=== PATIENT | male | born 1960 | race Caucasian/White ===

== ENCOUNTER 2018-03-25 08:01 | Inpatient (IN) | payer OTHER ==
--- NOTE | 2018-03-25 08:48 | HP ---
CIWA Score Nausea/Vomitin Muscle Tremors: 2 Anxiety: 2 Agitation: 2 Paroxysmal Sweats: 1-Minimal Palms Moist Orientation: 0-Oriented Tacttile Disturbances: 1-Very Mild Itch/Numbness Auditory Disturbances: 1-Very Mild Visual Disturbances: 0-None Headache: 2-Mild CIWA-Ar Total Score: 13 - Admission Criteria OASAS Guidelines: Admission for Medically Managed Detox: Requires at least one of the followin. CIWA greater than 12 2. Seizures within the past 24 hours 3. Delirium tremens within the past 24 hours 4. Hallucinations within the past 24 hours 5. Acute intervention needed for co occurring medical disorder 6. Acute intervention needed for co occurring psychiatric disorder 7. Severe withdrawal that cannot be handled at a lower level of care (continued vomiting, continued diarrhea, abnormal vital signs) requiring intravenous medication and/or fluids 8. Patient presents the following: CIWA greater than 12 Admission Criteria Met: Admission criteria met Admission ROS BHS - HPI Chief Complaint: i need help to stop drinking alcohol Allergies/Adverse Reactions: Allergies Allergy/AdvReac Type Severity Reaction Status Date / Time No Known Allergies Allergy Verified 03/25/18 08:55 History of Present Illness: this 57 years old male with alcohol dependence,seeking detox,withdrawal symptom, last seen in [facility] last nidht,refer for detox history of hypertension told by dentist 2 days ago,no medication syncope alcohol related last detox 2013 at [facility] plan for outpatient program and AA meeting,been to AA in the past Exam Limitations: No Limitations - Ebola screening Have you traveled outside of the country in the last 21 days: No (N) Have you had contact with anyone from an Ebola affected area: No Do you have a fever: No - Review of Systems Constitutional: Loss of Appetite, Malaise, Night Sweats, Changes in sleep, Weakness EENT: reports: Nose Congestion Respiratory: reports: No Symptoms reported Cardiac: reports: Palpitations GI: reports: Nausea, Indigestion, Abdominal cramping Musculoskeletal: reports: Back Pain, Muscle Pain Integumentary: reports: Dryness Neuro: reports: Headache, Tremors Endocrine: reports: No Symptoms Reported Hematology: reports: No Symptoms Reported Psychiatric: reports: No Sypmtoms Reported, Judgement Intact, Mood/Affect Appropiate, Orientated x3 Other Systems: Reviewed and Negative Patient History - Patient Medical History Hx Anemia: No Hx Asthma: No Hx Chronic Obstructive Pulmonary Disease (COPD): No Hx Cancer: No Hx Cardiac Disorders: No Hx Congestive Heart Failure: No Hx Hypertension: Yes (no med) Hx Hypercholesterolemia: No Hx Pacemaker: No HX Cerebrovascular Accident: No Hx Seizures: No Hx Dementia: No Hx Diabetes: No Hx Gastrointestinal Disorders: No Hx Liver Disease: No Hx Genitourinary Disorders: No Hx Sexually Transmitted Disorders: No Hx Renal Disease (ESRD): No Hx Thyroid Disease: No Hx Human Immunodeficiency Virus (HIV): No (last 2016 negative) Hx Hepatitis C: No Hx Depression: No Hx Suicide Attempt: No Hx Bipolar Disorder: No Hx Schizophrenia: No Other Medical History: no suicidal,no homicidal - Patient Surgical History Past Surgical History: No - PPD History Previous Implant?: Yes Documented Results: Negative w/o proof Implanted On Prior [facility] Admission?: No PPD to be Administered?: Yes - Smoking Cessation Smoking history: Never smoked - Substance & Tx. History Hx Alcohol Use: Yes Hx Substance Use: No Substance Use Type: Alcohol Hx Substance Use Treatment: Yes (2013 [facility]) - Substances Abused Alcohol Route: Oral Frequency: Daily Amount used: 1 PINT OF VODKA Age of first use: 18 Date of Last Use: 03/24/18 Family Disease History - Family Disease History Family History: Denies Admission Physical Exam BHS - Vital Signs Vital Signs: Vital Signs Temperature 98.1 F 03/26/18 05:58 Pulse Rate 72 03/26/18 05:58 Respiratory Rate 18 03/26/18 05:58 Blood Pressure 144/84 03/26/18 05:58 O2 Sat by Pulse Oximetry (%) - Physical General Appearance: Yes: Moderate Distress, Tremorous, Irritable, Sweating, Anxious HEENTM: Yes: Normal ENT Inspection, KENA, Pharynx Normal Respiratory: Yes: Lungs Clear, Normal Breath Sounds, No Respiratory Distress Neck: Yes: Within Normal Limits, Supple, Trachea in good position Breast: Yes: Within Normal Limits Cardiology: Yes: Within Normal Limits, Regular Rhythm, Regular Rate, S1, S2 Abdominal: Yes: Within Normal Limits, Normal Bowel Sounds, Non Tender, Flat, Soft Genitourinary: Yes: Within Normal Limits Back: Yes: Muscle Spasm Musculoskeletal: Yes: Back pain, Muscle Pain Extremities: Yes: Tremors Neurological: Yes: drawer in hand II-XII NML intact, Fully Oriented, Alert, Motor Strength 5/5 Integumentary: Yes: Dry Lymphatic: Yes: Within Normal Limits - Diagnostic (1) Alcohol dependence with uncomplicated withdrawal Current Visit: Yes Status: Acute (2) Syncope Current Visit: Yes Status: Acute (3) Essential hypertension Current Visit: Yes Status: Acute Cleared for Admission BHS - Detox or Rehab S Level of Care: Medically Managed Detox Regimen/Protocol: Librium
[2018-03-25 09:07] VITALS: BMI 29.5
[2018-03-25] MEDS ORDERED: ACETAMINOPHEN 325 MG TABLET (FP) PO PRN (09:12)
[2018-03-25] MEDS ORDERED: guaiFENesin/D-METHORPHAN HB 10 ML UNIT-DOSE CUPS PO PRN (09:12)
[2018-03-25] MEDS ORDERED: LOPERAMIDE HCL 2 MG CAPSULE PO PRN (09:12)
[2018-03-25] MEDS ORDERED: hydrOXYzine PAMOATE 50 MG CAPSULE (FP) PO PRN (09:12)
[2018-03-25] MEDS ORDERED: IBUPROFEN 400 MG TABLET (FP) PO PRN (09:12)
[2018-03-25] MEDS ORDERED: chlordiazePOXIDE HCL 25 MG CAPSULE PO PRN (09:12)
[2018-03-25] MEDS ORDERED: MAGNESIUM CITRATE 300 ML BOTTLE PO PRN (09:12)
[2018-03-25] MEDS ORDERED: MAGNESIUM HYDROX 2400MG/30ML ORAL SUSPENSION 30 ML CUP PO PRN (09:12)
[2018-03-25] MEDS ORDERED: P-EPHED 60MG/TRIPROLIDI 2.5MG TABLET PO PRN (09:12)
[2018-03-25] MEDS ORDERED: MENTHOL/PHENOL 1 EACH UD MM PRN (09:12)
[2018-03-25] MEDS ORDERED: MAG HYDROX/AL HYDROX/SIMETH 30 ML UNIT-DOSE CUP PO PRN (09:12)
[2018-03-25] MEDS ORDERED: cloNIDine HCL 0.1 MG TABLET PO ONE (09:35)
[2018-03-25] MEDS: chlordiazePOXIDE HCL 25 MG CAPSULE PO SCH ×3 (10:09→22:18)
[2018-03-25] MEDS: PRENATAL VITAMINS W/ FOLIC ACID TABLET (FP) PO SCH (10:09)
--- NOTE | 2018-03-25 16:47 | EKG ---
Test Reason : Blood Pressure : / mmHG Vent. Rate : 092 BPM Atrial Rate : 092 BPM P-R Int : 156 ms QRS Dur : 112 ms QT Int : 394 ms P-R-T Axes : 045 041 058 degrees QTc Int : 487 ms NORMAL SINUS RHYTHM INCOMPLETE RIGHT BUNDLE BRANCH BLOCK PROLONGED QT ABNORMAL ECG NO PREVIOUS ECGS AVAILABLE Confirmed by VERONICA WEISS MD ([id number]) on 03/25/2018 4:47:02 PM Referred By: Confirmed By:VERONICA WEISS MD
[2018-03-25 17:04] LABS: URINE APPEARANCE CLEAR; URINE BILIRUBIN NEGATIVE (<2.0 mg/dL); URINE COLOR YELLOW; URINE GLUCOSE (UA) NEGATIVE (NEGATIVE); URINE KETONE 1+ (NEGATIVE); URINE LEUK ESTERASE NEGATIVE (NEGATIVE); URINE NITRITE NEGATIVE (NEGATIVE); URINE PROTEIN 1+ (NEGATIVE); URINE UROBILINOGEN NEGATIVE mg/dL (0.2-1.0)
[2018-03-25] MEDS ORDERED: MELATONIN 5 MG TABLETS PO PRN (22:00)
[2018-03-25] MEDS: THIAMINE HCL 100 MG TABLET (FP) PO SCH (22:18)
[2018-03-26] MEDS: chlordiazePOXIDE HCL 25 MG CAPSULE PO SCH ×4 (05:17→22:13)
[2018-03-26] MEDS: PRENATAL VITAMINS W/ FOLIC ACID TABLET (FP) PO SCH (10:15)
--- NOTE | 2018-03-26 10:22 | PN ---
S CIWA - CIWA Score Nausea/Vomitin-No Nausea/No Vomiting Muscle Tremors: 4-Moderate,w/Arms Extend Anxiety: 3 Agitation: 3 Paroxysmal Sweats: 3 Orientation: 0-Oriented Tacttile Disturbances: 0-None Auditory Disturbances: 0-None Visual Disturbances: 0-None Headache: 0-None Present CIWA-Ar Total Score: 13 BHS Progress Note (SOAP) Subjective: sweats shakes interrupted sleep body aches Objective: 03/26/18 10:19 Vital Signs Temperature 98.2 F 03/26/18 09:55 Pulse Rate 88 03/26/18 09:55 Respiratory Rate 18 03/26/18 09:55 Blood Pressure 148/76 03/26/18 09:55 O2 Sat by Pulse Oximetry (%) Laboratory Tests 03/25/18 10:00 Urine Color Yellow Urine Appearance Clear Urine pH 6.0 Ur Specific [place] 1.025 Urine Protein 1+ H Urine Glucose (UA) Negative Urine Ketones 1+ H Urine Blood Negative Urine Nitrite Negative Urine Bilirubin Negative Urine Urobilinogen Negative Ur Leukocyte Esterase Negative Urine WBC (Auto) 1 Urine RBC (Auto) <1 rest of labs pending aaox3 ambulating no acute distress Assessment: 03/26/18 10:21 withdrawal sx Plan: continue detox increase fluids labs pending
[2018-03-26 11:02] LABS: HEMATOCRIT 41.1 % (35.4-49); HEMOGLOBIN 13.1 GM/dL (11.7-16.9); MCH 28.5 pg (25.7-33.7); MEAN CELL VOLUME 89.2 fl (80-96); MEAN PLT VOLUME 9.8 fl (7.5-11.1); PLATELET COUNT 184 K/MM3 (134-434); RBC 4.61 M/mm3 (4.00-5.60); RDW 14.7 % (11.9-15.9); WHITE BLOOD COUNT 5.8 K/mm3 (4.0-10.0)
[2018-03-26 11:30] LABS: ALBUMIN 4.4 g/dl (3.4-5.0); ALK PHOS 53 U/L (45-117); ANION GAP 8 MMOL/L (8-16); BILIRUBIN,TOTAL 1.1 mg/dL (0.2-1); BLOOD UREA NITROGEN 10 mg/dL (7-18); CALCIUM 8.8 mg/dL (8.5-10.1); CHLORIDE 104 mmol/L (98-107); CO2 29 mmol/L (21-32); CREATININE 0.7 mg/dL (0.55-1.3); GLUCOSE,RANDOM 106 mg/dL (74-106); POTASSIUM 3.6 mmol/L (3.5-5.1); SGOT/AST 42 U/L (15-37); SGPT/ALT 66 U/L (13-61); SODIUM 141 mmol/L (136-145); TOT PROT 7.6 g/dl (6.4-8.2)
[2018-03-26] MEDS ORDERED: PNEUMOC 13-VAL CONJ-DIP CRM/PF 0.5 ML DISP.SYRIN IM ONE (12:00)
[2018-03-26] MEDS ORDERED: PNEUMOCOCCAL 23 VACCINE 0.5 ML VIAL IM ONE (12:00)
[2018-03-26] MEDS ORDERED: FLU VACCINE QUAD 60 MCG/0.5 ML (MDV 18-19) IM ONE (12:00)
[2018-03-26] MEDS: THIAMINE HCL 100 MG TABLET (FP) PO SCH (22:13)
[2018-03-27] MEDS: chlordiazePOXIDE HCL 25 MG CAPSULE PO SCH (05:27)
[2018-03-27] MEDS: PRENATAL VITAMINS W/ FOLIC ACID TABLET (FP) PO SCH (10:05)
[2018-03-27] MEDS: chlordiazePOXIDE 5 MG CAPSULE PO SCH ×3 (10:06→22:14)
--- NOTE | 2018-03-27 10:32 | PN ---
S CIWA - CIWA Score Nausea/Vomitin-No Nausea/No Vomiting Muscle Tremors: 3 Anxiety: 2 Agitation: 3 Paroxysmal Sweats: 2 Orientation: 0-Oriented Tacttile Disturbances: 0-None Auditory Disturbances: 0-None Visual Disturbances: 0-None Headache: 0-None Present CIWA-Ar Total Score: 10 BHS Progress Note (SOAP) Subjective: sweats little shakes feeling better so far little anxiety Objective: 03/27/18 10:31 Vital Signs Temperature 97.9 F 03/27/18 09:08 Pulse Rate 73 03/27/18 09:08 Respiratory Rate 18 03/27/18 09:08 Blood Pressure 140/83 03/27/18 09:08 O2 Sat by Pulse Oximetry (%) Laboratory Tests 03/25/18 03/26/18 03/26/18 10:00 05:45 05:45 WBC 5.8 RBC 4.61 Hgb 13.1 Hct 41.1 MCV 89.2 MCH 28.5 MCHC 32.0 RDW 14.7 Plt Count 184 MPV 9.8 Sodium 141 Potassium 3.6 Chloride 104 Carbon Dioxide 29 Anion Gap 8 BUN 10 Creatinine 0.7 Creat Clearance w eGFR > 60 Random Glucose 106 Calcium 8.8 Total Bilirubin 1.1 H AST 42 H ALT 66 H Alkaline Phosphatase 53 Total Protein 7.6 Albumin 4.4 Urine Color Yellow Urine Appearance Clear Urine pH 6.0 Ur Specific [place] 1.025 Urine Protein 1+ H Urine Glucose (UA) Negative Urine Ketones 1+ H Urine Blood Negative Urine Nitrite Negative Urine Bilirubin Negative Urine Urobilinogen Negative Ur Leukocyte Esterase Negative Urine WBC (Auto) 1 Urine RBC (Auto) <1 RPR Titer 03/26/18 05:45 WBC RBC Hgb Hct MCV MCH MCHC RDW Plt Count MPV Sodium Potassium Chloride Carbon Dioxide Anion Gap BUN Creatinine Creat Clearance w eGFR Random Glucose Calcium Total Bilirubin AST ALT Alkaline Phosphatase Total Protein Albumin Urine Color Urine Appearance Urine pH Ur Specific [place] Urine Protein Urine Glucose (UA) Urine Ketones Urine Blood Urine Nitrite Urine Bilirubin Urine Urobilinogen Ur Leukocyte Esterase Urine WBC (Auto) Urine RBC (Auto) RPR Titer Nonreactive aaox3 ambulating no acute distress Assessment: 03/27/18 10:31 withdrawal sx Plan: continue detox increase fluids
[2018-03-27] MEDS: THIAMINE HCL 100 MG TABLET (FP) PO SCH (22:13)
[2018-03-28] MEDS: chlordiazePOXIDE 5 MG CAPSULE PO SCH (05:14)
[2018-03-28] MEDS ORDERED: cloNIDine HCL 0.1 MG TABLET PO ONE (10:26)
--- NOTE | 2018-03-28 10:29 | PN ---
[facility] Progress Note Note: PATIENT CONTINUES WITH DETOX REGIMEN. C/O FEELING TIRED BUT OTHERWISE MUCH BETTER SINCE ADMISSION. Vital Signs Temperature 97.2 F L 03/28/18 09:27 Pulse Rate 80 03/28/18 09:27 Respiratory Rate 18 03/28/18 09:27 Blood Pressure 151/91 03/28/18 09:27 O2 Sat by Pulse Oximetry (%) Laboratory Tests 03/25/18 03/26/18 03/26/18 10:00 05:45 05:45 WBC 5.8 RBC 4.61 Hgb 13.1 Hct 41.1 MCV 89.2 MCH 28.5 MCHC 32.0 RDW 14.7 Plt Count 184 MPV 9.8 Sodium 141 Potassium 3.6 Chloride 104 Carbon Dioxide 29 Anion Gap 8 BUN 10 Creatinine 0.7 Creat Clearance w eGFR > 60 Random Glucose 106 Calcium 8.8 Total Bilirubin 1.1 H AST 42 H ALT 66 H Alkaline Phosphatase 53 Total Protein 7.6 Albumin 4.4 Urine Color Yellow Urine Appearance Clear Urine pH 6.0 Ur Specific [place] 1.025 Urine Protein 1+ H Urine Glucose (UA) Negative Urine Ketones 1+ H Urine Blood Negative Urine Nitrite Negative Urine Bilirubin Negative Urine Urobilinogen Negative Ur Leukocyte Esterase Negative Urine WBC (Auto) 1 Urine RBC (Auto) <1 RPR Titer 03/26/18 05:45 WBC RBC Hgb Hct MCV MCH MCHC RDW Plt Count MPV Sodium Potassium Chloride Carbon Dioxide Anion Gap BUN Creatinine Creat Clearance w eGFR Random Glucose Calcium Total Bilirubin AST ALT Alkaline Phosphatase Total Protein Albumin Urine Color Urine Appearance Urine pH Ur Specific [place] Urine Protein Urine Glucose (UA) Urine Ketones Urine Blood Urine Nitrite Urine Bilirubin Urine Urobilinogen Ur Leukocyte Esterase Urine WBC (Auto) Urine RBC (Auto) RPR Titer Nonreactive PE: ALERT AND ORIENTED X 3 SKIN +FACIAL FLUSHING WARM AND DRY EXT FULL ROM, NO VISIBLE TREMORS AMB AD AMA A/P ELEVATED BP WITHDRAWAL SX CONTINUE DETOX ENCOURAGE FLUIDS CLONIDINE 0.1MG PO X ONE FOR D/C IN AM. PATIENT ADVISED TO FOLLOW UP WITH PCP WHEN D/C TO [facility] FOR BP MANAGEMENT AND PRIMARY CARE SERVICES. CONTINUE TO MONITOR
[2018-03-28] MEDS: PRENATAL VITAMINS W/ FOLIC ACID TABLET (FP) PO SCH (10:30)
[2018-03-28] MEDS: chlordiazePOXIDE HCL 10 MG CAPSULE PO SCH ×3 (10:30→22:06)
[2018-03-28] MEDS: THIAMINE HCL 100 MG TABLET (FP) PO SCH (22:06)
[2018-03-29] MEDS: chlordiazePOXIDE HCL 10 MG CAPSULE PO SCH (05:18)
[2018-03-29 06:12] VITALS: TEMP 97.7
[2018-03-29 09:31] VITALS: BP 139/84; PULSE 103
[2018-03-29] MEDS: PRENATAL VITAMINS W/ FOLIC ACID TABLET (FP) PO SCH (10:23)
--- NOTE | 2018-03-29 11:09 | DS ---
[facility] Detox Discharge Summary Admission Date: 03/25/18 Discharge Date: 03/29/18 - History Present History: Alcohol Dependence Additional Comments: 57 years old male admitted on 03/25/18 for alcohol withdrawal stabilization completed alcohol detox regiment tolerated well alert no acute distress aftercare Critical access hospital services Pertinent Past History: strong recommend the patient to go to [facility] services for bp monitoring and low salt diet as well as alcohol induced cardiovascular hypertension - Physical Exam Results Vital Signs: Vital Signs Temperature 97.7 F 03/29/18 09:30 Pulse Rate 103 H 03/29/18 09:30 Respiratory Rate 18 03/29/18 09:30 Blood Pressure 139/84 03/29/18 09:30 O2 Sat by Pulse Oximetry (%) Pertinent Admission Physical Exam Findings: alcohol withdrawal sx Vital Signs Temperature 97.7 F 03/29/18 09:30 Pulse Rate 103 H 03/29/18 09:30 Respiratory Rate 18 03/29/18 09:30 Blood Pressure 139/84 03/29/18 09:30 O2 Sat by Pulse Oximetry (%) Laboratory Last Values WBC 5.8 K/mm3 (4.0-10.0) 03/26/18 05:45 RBC 4.61 M/mm3 (4.00-5.60) 03/26/18 05:45 Hgb 13.1 GM/dL (11.7-16.9) 03/26/18 05:45 Hct 41.1 % (35.4-49) 03/26/18 05:45 MCV 89.2 fl (80-96) 03/26/18 05:45 MCH 28.5 pg (25.7-33.7) 03/26/18 05:45 MCHC 32.0 g/dl (32.0-35.9) 03/26/18 05:45 RDW 14.7 % (11.9-15.9) 03/26/18 05:45 Plt Count 184 K/MM3 (134-434) 03/26/18 05:45 MPV 9.8 fl (7.5-11.1) 03/26/18 05:45 Sodium 141 mmol/L (136-145) 03/26/18 05:45 Potassium 3.6 mmol/L (3.5-5.1) 03/26/18 05:45 Chloride 104 mmol/L (98-107) 03/26/18 05:45 Carbon Dioxide 29 mmol/L (21-32) 03/26/18 05:45 Anion Gap 8 MMOL/L (8-16) 03/26/18 05:45 BUN 10 mg/dL (7-18) 03/26/18 05:45 Creatinine 0.7 mg/dL (0.55-1.3) 03/26/18 05:45 Creat Clearance w eGFR > 60 (>60) 03/26/18 05:45 Random Glucose 106 mg/dL (74-106) 03/26/18 05:45 Calcium 8.8 mg/dL (8.5-10.1) 03/26/18 05:45 Total Bilirubin 1.1 mg/dL (0.2-1) H 03/26/18 05:45 AST 42 U/L (15-37) H 03/26/18 05:45 ALT 66 U/L (13-61) H 03/26/18 05:45 Alkaline Phosphatase 53 U/L (45-117) 03/26/18 05:45 Total Protein 7.6 g/dl (6.4-8.2) 03/26/18 05:45 Albumin 4.4 g/dl (3.4-5.0) 03/26/18 05:45 Urine Color Yellow 03/25/18 10:00 Urine Appearance Clear 03/25/18 10:00 Urine pH 6.0 (5.0-8.0) 03/25/18 10:00 Ur Specific [place] 1.025 (1.010-1.035) 03/25/18 10:00 Urine Protein 1+ (NEGATIVE) H 03/25/18 10:00 Urine Glucose (UA) Negative (NEGATIVE) 03/25/18 10:00 Urine Ketones 1+ (NEGATIVE) H 03/25/18 10:00 Urine Blood Negative (NEGATIVE) 03/25/18 10:00 Urine Nitrite Negative (NEGATIVE) 03/25/18 10:00 Urine Bilirubin Negative (<2.0 mg/dL) 03/25/18 10:00 Urine Urobilinogen Negative mg/dL (0.2-1.0) 03/25/18 10:00 Ur Leukocyte Esterase Negative (NEGATIVE) 03/25/18 10:00 Urine WBC (Auto) 1 /hpf (3-5) 03/25/18 10:00 Urine RBC (Auto) <1 /hpf (0-3) 03/25/18 10:00 RPR Titer Nonreactive (NONREACTIVE) 03/26/18 05:45 lab noted - Treatment Hospital Course: Detox Protocol Followed, Detoxed Safely, Responded well, Discharged Condition Good, Rehab Referral Accepted Patient [facility] - Medication Discharge Medications: Ambulatory Orders NK [No Known Home Medication] 03/25/18 - Diagnosis (1) Alcohol dependence with uncomplicated withdrawal Current Visit: Yes Status: Acute (2) Essential hypertension Current Visit: Yes Status: Chronic - AMA Did Patient Leave Against Medical Advice: No
== END 2018-03-29 11:35 | disposition home or self-care (01) | DRG 775 ==
LOC: YASAS 08:01 → Y6N 09:10
PROC: HZ2ZZZZ Detoxification Services for Substance Abuse Treatment (ICD-10-PCS; principal; 2018-03-25)
DX: F10.230 Alcohol dependence with withdrawal, uncomplicated (principal); I10 Essential (primary) hypertension; R55 Syncope and collapse
CPT/HCPCS: 36415; 80053; 81003; 81015; 85027; 86593; 90688; 90732; 93005; 93010; G0008; G0009; J0735